=== PATIENT | female | born 1990 | race Caucasian/White ===

== ENCOUNTER 2021-09-11 20:43 | Emergency (ER) | payer BC ==
[~2021-09-11] VITALS: Ht 177.8 cm; Wt 116.1 kg
[2021-09-11] MEDS ORDERED: SUMA50TA2 (20:55)
[2021-09-11] MEDS ORDERED: CYCL10TA25 (20:55)
--- NOTE | 2021-09-11 21:13 | ED General ---
General Chief Complaint: Head/Cervical Problems Stated Complaint: ARAUJO/N Nursing Triage Note: headache x3 days, nausea today. Source of Information: Patient Exam Limitations: No Limitations History of Present Illness Date Seen by Provider: Sep 11, 2021 Time Seen by Provider: 20:58 Initial Comments Patient is a 31-year-old female who presents to the emergency department today with a chief complaint of migraine type headache over the course of the last 3 days. She is also complaining of significant muscle pain, tightness in her neck and shoulders. Headache has been unresponsive to her usual medications of rizatriptan and Ubrelvy. Patient states she has taken the rizatriptan once today. She has become increasingly nauseated throughout the day today. She complains of epigastric and right upper quadrant pain. No reported fever. No shortness of breath or chest pain. No burning with urination. She has had some diarrhea. She also complains of a little nasal congestion, ringing in her ears and mildly sore throat. No sick contacts at home. The headache is global in nature. Other than the length of time nothing else is really different about the headache. All other review of systems reviewed and negative except as stated. Timing/Duration: 2-3 Days Severity: Severe Associated Systoms: Headaches, Malaise, Nausea/Vomiting Allergies and Home Medications Allergies Coded Allergies: No Known Drug Allergies (Unverified , 09/11/21) Patient Home Medication List Home Medication List Reviewed: Yes Cyclobenzaprine HCl (Cyclobenzaprine HCl) 10 Mg Tablet, (Reported) Entered as Reported by: DEREK MOSS on 09/11/212054 Last Action: New Order Sumatriptan Succinate (Sumatriptan Succinate) 50 Mg Tablet, (Reported) Entered as Reported by: DEREK MOSS on 09/11/212054 Last Action: New Order Review of Systems Review of Systems Constitutional: see HPI EENTM: nose congestion, throat pain, other (ears ringing) Respiratory: no symptoms reported Cardiovascular: no symptoms reported Gastrointestinal: abdominal pain, nausea Genitourinary: no symptoms reported : No Musculoskeletal: muscle pain, neck pain Skin: no symptoms reported Psychiatric/Neurological: Headache, Tremors (earlier today), Other (dizziness earlier today) All Other Systems Reviewed Negative Unless Noted: Yes Past Uuhkhvn-Rkvfvx-Itnblf Hx Patient Social History Tobacco Use?: No Substance use?: No Alcohol Use?: Yes Alcohol Frequency: Once in a while Pt feels they are or have been: No Past Medical History Surgery/Hospitalization HX: headaches/migraines Physical Exam Vital Signs Vital Signs - First Documented 09/11/21 20:49 Temp 36.1 Pulse 95 Resp 18 B/P (MAP) 145/87 (106) Pulse Ox 97 O2 Delivery Room Air Capillary Refill : Less Than 3 Seconds Height, Weight, BMI Height: '" Weight: lbs. oz. kg; 36.00 BMI Method: General Appearance: WD/WN, Mild Distress Eyes: Bilateral Eye Normal Inspection, Bilateral Eye PERRL, Bilateral Eye EOMI HEENT: TMs Normal, Pharynx Normal Neck: Full Range of Motion, Normal Inspection, Non Tender, Supple, Other (no meningismus) Respiratory: Lungs Clear, Normal Breath Sounds, No Accessory Muscle Use, No Respiratory Distress Cardiovascular: Regular Rate, Rhythm, Normal Peripheral Pulses Gastrointestinal: Soft, Tenderness (epigastric and RUQ) Extremity: Normal Capillary Refill, Normal Inspection, Normal Range of Motion Neurologic/Psychiatric: Alert, Oriented x3, No Motor/Sensory Deficits, Normal Mood/Affect, 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 Norm as Tested, Other (normal finger to nose; normal gait; ) Skin: Normal Color, Warm/Dry Progress/Results/Core Measures Suspected Sepsis SIRS Temperature: Pulse: 95 Respiratory Rate: 18 Laboratory Tests 09/11/21 21:12: White Blood Count 12.9H Blood Pressure 145 /87 Mean: 106 Laboratory Tests 09/11/21 21:12: Creatinine 0.74, Platelet Count 393, Total Bilirubin 0.1 Results/Orders Lab Results Laboratory Tests Test 09/11/21 21:12 Range/Units White Blood Count 12.9 H 4.3-11.0 10^3/uL Red Blood Count 5.08 3.80-5.11 10^6/uL Hemoglobin 12.8 11.5-16.0 g/dL Hematocrit 40 35-52 % Mean Corpuscular Volume 78 L 80-99 fL Mean Corpuscular Hemoglobin 25 25-34 pg Mean Corpuscular Hemoglobin Concent 32 32-36 g/dL Red Cell Distribution Width 14.7 H 10.0-14.5 % Platelet Count 393 130-400 10^3/uL Mean Platelet Volume 9.7 9.0-12.2 fL Immature Granulocyte % (Auto) 1 % Neutrophils (%) (Auto) 67 42-75 % Lymphocytes (%) (Auto) 27 12-44 % Monocytes (%) (Auto) 4 0-12 % Eosinophils (%) (Auto) 1 0-10 % Basophils (%) (Auto) 0 0-10 % Neutrophils # (Auto) 8.7 H 1.8-7.8 10^3/uL Lymphocytes # (Auto) 3.5 1.0-4.0 10^3/uL Monocytes # (Auto) 0.5 0.0-1.0 10^3/uL Eosinophils # (Auto) 0.1 0.0-0.3 10^3/uL Basophils # (Auto) 0.0 0.0-0.1 10^3/uL Immature Granulocyte # (Auto) 0.1 0.0-0.1 10^3/uL Sodium Level 139 135-145 MMOL/L Potassium Level 3.4 L 3.6-5.0 MMOL/L Chloride Level 101 98-107 MMOL/L Carbon Dioxide Level 23 21-32 MMOL/L Anion Gap 15 H 5-14 MMOL/L Blood Urea Nitrogen 6 L 7-18 MG/DL Creatinine 0.74 0.60-1.30 MG/DL Estimat Glomerular Filtration Rate 112 BUN/Creatinine Ratio 8 Glucose Level 113 H 70-105 MG/DL Calcium Level 9.0 8.5-10.1 MG/DL Corrected Calcium 9.0 8.5-10.1 MG/DL Total Bilirubin 0.1 0.1-1.0 MG/DL Aspartate Amino Transf (AST/SGOT) 16 5-34 U/L Alanine Aminotransferase (ALT/SGPT) 19 0-55 U/L Alkaline Phosphatase 77 40-136 U/L Total Protein 7.1 6.4-8.2 GM/DL Albumin 4.0 3.2-4.5 GM/DL My Orders Orders - SHERI TAN MD Ed Iv/Invasive Line Start (09/11/21 21:07) Cbc With Automated Diff (09/11/21 21:07) Comprehensive Metabolic Panel (09/11/21 21:07) Ns Iv 1000 Ml (Sodium Chloride 0.9%) (09/11/21 21:15) Ketorolac Injection (Toradol Injection) (09/11/21 21:15) Metoclopramide Injection (Reglan Injecti (09/11/21 21:15) Diphenhydramine Injection (Benadryl Inje (09/11/21 21:15) Medications Given in ED Current Medications Medications Dose Ordered Sig/Pau Route Start Time Stop Time Status Last Admin Dose Admin Diphenhydramine HCl 25 mg ONCE ONCE IV 09/11/21 21:15 09/11/21 21:16 DC 09/11/21 21:17 25 MG Ketorolac Tromethamine 30 mg ONCE ONCE IVP 09/11/21 21:15 09/11/21 21:16 DC 09/11/21 21:22 30 MG Metoclopramide HCl 10 mg ONCE ONCE IVP 09/11/21 21:15 09/11/21 21:16 DC 09/11/21 21:17 10 MG Vital Signs/I&O 09/11/21 20:49 Temp 36.1 Pulse 95 Resp 18 B/P (MAP) 145/87 (106) Pulse Ox 97 O2 Delivery Room Air Capillary Refill : Less Than 3 Seconds Blood Pressure Mean: 106 Progress Note : Time: 21:54 Progress Note Patient rechecked approximately 40 minutes after medications she feels 100% better. She is sitting up smiling, more interactive, symptoms are completely resolved. We talked about medication usage, she has plenty of Maxalt refills. She has nausea medicine at home. I encouraged her to drink extra fluids over e next couple of days to play "catch up" since she has been feeling bad for a couple of days. She verbalized understanding. All questions are sought and answered. Patient is stable for discharge. Departure Impression Primary Impression: Migraine Qualified Codes: G43.909 - Migraine, unspecified, not intractable, without status migrainosus Disposition: 01 HOME, SELF-CARE Condition: Improved Departure-Patient Inst. Decision time for Depature: 21:55 Referrals: PASTORA ZAMORA MD (PCP) Primary Care Physician JOSE HARRIS MD (Family) Primary Care Physician Patient Instructions: Migraines (DC) Add. Discharge Instructions: Drink plenty of fluids over the next 24 to 48 hours to stay well-hydrated. Continue routine daily medications as previously prescribed. Return to the emergency room for any new, concerning or emergent complaints. Copy Copies To 1: JOSE HARRIS MD, KATHRYN M MD Sep 11, 2021 21:12
[2021-09-11] MEDS ORDERED: METOCLOPRAMIDE INJ 10 MG/2 ML (REGLAN) IVP ONE (21:15)
[2021-09-11] MEDS ORDERED: KETOROLAC 30 MG/ML VIAL IVP ONE (21:15)
[2021-09-11] MEDS ORDERED: NS IV 1000 ML 1,000 ML IV SCH (21:15)
[2021-09-11] MEDS ORDERED: diphenhydrAMINE 50 MG/ML INJ (BENADRYL) IV ONE (21:15)
[2021-09-11 21:27] LABS: BASOPHILS % (AUTO) 0 % (0-10); EOSINOPHILS # (AUTO) 0.1 10^3/uL (0.0-0.3); EOSINOPHILS % (AUTO) 1 % (0-10); HEMATOCRIT 40 % (35-52); HEMOGLOBIN 12.8 g/dL (11.5-16.0); LYMPHOCYTES # (AUTO) 3.5 10^3/uL (1.0-4.0); LYMPHOCYTES % (AUTO) 27 % (12-44); MEAN CORPUSCULAR HEMOGLOBIN 25 pg (25-34); MEAN CORPUSCULAR HGB CONC 32 g/dL (32-36); MEAN CORPUSCULAR VOLUME 78 fL (80-99); MEAN PLATELET VOLUME 9.7 fL (9.0-12.2); MONOCYTES # (AUTO) 0.5 10^3/uL (0.0-1.0); MONOCYTES % (AUTO) 4 % (0-12); NEUTROPHILS # (AUTO) 8.7 10^3/uL (1.8-7.8); NEUTROPHILS % (AUTO) 67 % (42-75); PLATELET COUNT 393 10^3/uL (130-400); WHITE BLOOD COUNT 12.9 10^3/uL (4.3-11.0)
[2021-09-11 21:37] LABS: POTASSIUM 3.4 MMOL/L (3.6-5.0)
[2021-09-11 21:39] LABS: TOTAL PROTEIN 7.1 GM/DL (6.4-8.2)
[2021-09-11 21:41] LABS: BILIRUBIN,TOTAL 0.1 MG/DL (0.1-1.0)
[2021-09-11 21:43] LABS: CREATININE SERUM 0.74 MG/DL (0.60-1.30)
[2021-09-11 21:56] VITALS: BP 142/78
== END 2021-09-11 21:58 | disposition home or self-care (01) ==
LOC: EDUNIT# 20:43 → ER 20:46
DX: G43.909 Migraine, unspecified, not intractable, without status migrainosus (principal)
CPT/HCPCS: 36415; 80053; 85025

== ENCOUNTER 2021-09-20 04:27 | Emergency (ER) | payer BC ==
[~2021-09-20] VITALS: Ht 177.8 cm; Wt 118.2 kg
[~2021-09-20 04:27] MED LIST: CYCL10TA25; SUMA50TA2
--- NOTE | 2021-09-20 04:37 | ED Neck-Back Pain/Injury ---
General Stated Complaint: NECK/SHOULDER PAIN Source of Information: Patient History of Present Illness Date Seen by Provider: Sep 20, 2021 Time Seen by Provider: 04:36 Initial Comments PT ARRIVES VIA POV FROM [place] IN [place] C/O NECK AND SHOULDER PAIN AND TIGHTNESS FOR THE LAST 2-3 DAYS--RIGHT> LEFT NO RADIATION OF PAIN NO PARESTHESIAS OR MOTOR DEFICITS NO KNOWN INJURY STATES SHE WAS SITTING AT WORK AT [employer] WHEN PAIN GRADUALLY BEGAN NO UNUSUAL ACTIVITY NO HISTORY OF SIMILAR STATES SHE HAS CHRONIC MIGRAINES AND FIBROMYALGIA TOOK IBUPROFEN AT 8 PM, AND FLEXERIL AT 11 PM--NO RELIEF 08/31/21-09/02/21. NORMAL. WITH VASECTOMY Other Comments PCP; [facility], LAM CASTELLANOS. Allergies and Home Medications Allergies Coded Allergies: No Known Drug Allergies (Unverified , 09/11/21) Patient Home Medication List Home Medication List Reviewed: Yes Cyclobenzaprine HCl (Cyclobenzaprine HCl) 10 Mg Tablet, (Reported) Entered as Reported by: DEREK MOSS on 09/11/212054 Ketorolac Tromethamine (Ketorolac Tromethamine) 10 Mg Tablet, 10 MG PO Q6H Prescribed by: DARIEN JOLLY on 09/20/21447 Sumatriptan Succinate (Sumatriptan Succinate) 50 Mg Tablet, (Reported) Entered as Reported by: DEREK MOSS on 09/11/212054 Tizanidine HCl (Zanaflex) 4 Mg Capsule, 4 MG PO TID Prescribed by: DARIEN JOLLY on 09/20/21447 Tramadol HCl (Ultram) 50 Mg Tablet, 50 MG PO Q4H Prescribed by: DARIEN JOLLY on 09/20/21448 Review of Systems Constitutional: no symptoms reported EENTM: no symptoms reported Respiratory: no symptoms reported Cardiovascular: no symptoms reported Gastrointestinal: no symptoms reported Genitourinary: no symptoms reported : No LMP: Aug 31, 2021 Musculoskeletal: see HPI Skin: no symptoms reported Psychiatric/Neurological: No Symptoms Reported Past Atsnrao-Oooqnw-Uuhtxm Hx Patient Social History Tobacco Use?: No Substance use?: No Alcohol Use?: No Past Medical History Surgery/Hospitalization HX: headaches/migraines Surgeries: No Respiratory: No Cardiac: No Neurological: Yes Headaches /Migraines : No Genitourinary: No Gastrointestinal: No Musculoskeletal: Yes Fibromyalgia Endocrine: Yes (OBESITY) Cancer: No Psychosocial: Yes Sleep Difficulties Physical Exam Vital Signs Vital Signs - First Documented 09/20/21 04:33 Temp 36.9 Pulse 85 Resp 18 B/P (MAP) 129/74 (92) Pulse Ox 98 O2 Delivery Room Air Capillary Refill : Height, Weight, BMI Height: '" Weight: lbs. oz. kg; 36.00 BMI Method: General Appearance: No Apparent Distress, WD/WN, Obese, Other (MOVES SLOWLY AND DRAMATICALLY, CONSTANTLY INTENTIONALLY TENSING UP SHOULDERS AND NECK) HEENT: PERRL/EOMI Neck: Other (DIFFUSE BILATERAL LATERAL NECK AND TRAPEZIUS MUSCLE SPASMS AND TENDERNESS--RIGHT > LEFT. 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- XII Norm as Tested Skin: Normal Color; No Rash Progress/Results/Core Measures Results/Orders My Orders Orders - DARIEN JOLLY DO Urine Bedside (09/20/21 04:36) Drug Screen Stat (Urine) (09/20/21 04:36) Ua Culture If Indicated (09/20/21 04:36) Orphenadrine Inj (Ed Only) (Norflex Inje (09/20/21 05:00) Ketorolac Injection (Toradol Injection) (09/20/21 05:00) Diphenhydramine Injection (Benadryl Inje (09/20/21 05:00) Medications Given in ED Current Medications Medications Dose Ordered Sig/Pau Route Start Time Stop Time Status Last Admin Dose Admin Diphenhydramine HCl 50 mg ONCE ONCE IM 09/20/21 05:00 09/20/21 05:02 DC 09/20/21 05:13 50 MG Ketorolac Tromethamine 60 mg ONCE ONCE IM 09/20/21 05:00 09/20/21 05:02 DC 09/20/21 05:12 60 MG Orphenadrine Citrate 60 mg ONCE ONCE IM 09/20/21 05:00 09/20/21 05:02 DC 09/20/21 05:12 60 MG Vital Signs/I&O 09/20/21 09/20/21 04:33 05:36 Temp 36.9 36.2 Pulse 85 78 Resp 18 16 B/P (MAP) 129/74 (92) 122/82 Pulse Ox 98 99 O2 Delivery Room Air Room Air Progress Progress Note : Progress Note PT WILL NOT ATTEMPT TO GIVE URINE SPECIMEN--STATES SHE WENT SOON SHE ARRIVED, IN WAITING ROOM. STATES THERE IS "NO WAY' SHE COULD BE HER HAS HAD A VASECTOMY Departure Impression Primary Impression: Trapezius muscle spasm Disposition: HOME, SELF-CARE Condition: Stable Departure-Patient Inst. Decision time for Depature: 04:47 Referrals: PASTORA ZAMORA MD (PCP/Family) Primary Care Physician Patient Instructions: Muscle Spasm ED Add. Discharge Instructions: MOIST HEAT TO AREAS AT 20 MINUTE INTERVALS FOLLOW UP WITH YOUR DR IN 2-3 DAYS IF NO BETTER Scripts Tramadol HCl (Ultram) 50 Mg Tablet 50 MG PO Q4H for Pain, #20 TAB Prov: DARIEN JOLLY DO 09/20/21 Tizanidine HCl (Zanaflex) 4 Mg Capsule 4 MG PO TID for Spasms, #15 CAP Prov: DARIEN JOLLY DO 09/20/21 Ketorolac Tromethamine (Ketorolac Tromethamine) 10 Mg Tablet 10 MG PO Q6H for Pain, #15 TAB Prov: DARIEN JOLLY DO 09/20/21 DARIEN JOLLY DO Sep 20, 2021 04:37
[2021-09-20] MEDS ORDERED: KETO10TA PO (04:48)
[2021-09-20] MEDS ORDERED: TIZA4CAP PO (04:48)
[2021-09-20] MEDS ORDERED: TRAM-42 PO (04:48)
[2021-09-20] MEDS ORDERED: diphenhydrAMINE 50 MG/ML INJ (BENADRYL) IM ONE (05:00)
[2021-09-20] MEDS ORDERED: ORPHENADRINE 60 MG/2 ML (NORFLEX) AMP (ED ONLY) IM ONE (05:00)
[2021-09-20] MEDS ORDERED: KETOROLAC 60 MG/2 ML VIAL IM ONE (05:00)
[2021-09-20 05:36] VITALS: BP 122/82
== END 2021-09-20 05:35 | disposition home or self-care (01) ==
LOC: EDUNIT# 04:27 → ER 04:29
DX: M62.838 Other muscle spasm (principal); E66.9 Obesity, unspecified
CPT/HCPCS: 99284